=== PATIENT | male | born 1960 | race Caucasian/White ===

== ENCOUNTER 2024-10-09 14:09 | Inpatient (IN) ==
[2024-10-09] MEDS: morphine 2 MG/ML VIAL IV PRN (15:07)
[2024-10-09] MEDS: ceFAZolin 1 GM VIAL IV SCH (15:30)
[2024-10-09] MEDS: morphine 4 MG/ML VIAL IV ONE (17:21)
[2024-10-09] MEDS ORDERED: PROPOFOL 200 MG/20 ML VIAL IV ONE (17:24)
[2024-10-09] MEDS ORDERED: fentaNYL 100 MCG/2 ML VIAL ONE ×2 (17:24→19:15)
[2024-10-09] MEDS ORDERED: KETAMINE 50 MG/ML Syringe IV ONE (17:24)
[2024-10-09] MEDS ORDERED: SUCCINYLCHOLINE 200 MG/10 ML VIAL IV ONE (17:25)
[2024-10-09] MEDS ORDERED: LIDOCAINE 2% PF 5 ML VIAL ONE (17:25)
[2024-10-09] MEDS ORDERED: ONDANSETRON 4 MG/2 ML VIAL ONE (17:25)
[2024-10-09] MEDS ORDERED: DEXAMETHASONE 10 MG/ML VIAL ONE (17:25)
[2024-10-09] MEDS ORDERED: TRANEXAMIC ACID 1,000 MG/10 ML VIAL ONE (18:52)
[2024-10-09] MEDS ORDERED: SUGAMMADEX SODIUM 200 MG/2 ML VIAL IV ONE (18:58)
[2024-10-09] MEDS ORDERED: ONDANSETRON 4 MG/2 ML VIAL IV PRN ×2 (19:00→20:39)
[2024-10-09] MEDS ORDERED: diphenhydrAMINE 50 MG/ML VIAL IV PRN (19:00)
[2024-10-09] MEDS ORDERED: HYDROmorphone 0.5 MG/0.5 ML SYRINGE IV PRN (19:00)
[2024-10-09] MEDS ORDERED: LACTATED RINGERS 250 ML IV PRN (19:00)
[2024-10-09] MEDS ORDERED: IPRATROPIUM/ALBUTEROL 3 ML AMPUL.NEB NEB PRN ×2 (19:00→20:39)
[2024-10-09] MEDS ORDERED: MEPERIDINE 25 MG/ML VIAL IV PRN (19:00)
[2024-10-09] MEDS ORDERED: NALOXONE HCL 0.4 MG/ML VIAL IV PRN (19:00)
[2024-10-09] MEDS: fentaNYL 100 MCG/2 ML VIAL IV PRN (19:54)
[2024-10-09] MEDS: METHOCARBAMOL 1,000 MG/10 ML VIAL IV PRN (19:56)
[2024-10-09] MEDS: ACETAMINOPHEN 1,000 MG/100 ML BAG IV ONE (20:08)
[2024-10-09] MEDS ORDERED: POTASSIUM CHLORIDE 40 MEQ in DEXTROSE 5% IN WATER 500 ML IV PRN (20:39)
[2024-10-09] MEDS ORDERED: morphine 4 MG/ML VIAL IV PRN (20:39)
[2024-10-09] MEDS ORDERED: METOCLOPRAMIDE 10 MG/2 ML VIAL IV PRN (20:39)
[2024-10-09] MEDS ORDERED: MAGNESIUM SULFATE 2 GM/50 ML BAG IV PRN (20:39)
[2024-10-09] MEDS ORDERED: POTASSIUM CHLORIDE 20 MEQ TABLET PO PRN ×2 (20:39)
[2024-10-09] MEDS ORDERED: HYDROcodone/APAP 5/325MG TABLET PO PRN (20:39)
[2024-10-09] MEDS ORDERED: SENNOSIDES 1 TABLET PO PRN (20:39)
[2024-10-09] MEDS ORDERED: POLYETHYLENE GLYCOL 3350 17 GM PACKET PO PRN (20:39)
[2024-10-09] MEDS: fentaNYL 100 MCG/2 ML VIAL ONE (20:42)
[2024-10-09] MEDS: LACTATED RINGERS 1,000 ML IV SCH (20:43)
[2024-10-09] MEDS: 0.9 % SODIUM CHLORIDE 1,000 ML IV SCH (22:15)
[2024-10-09] MEDS: VANCOMYCIN 1,500 MG in 0.9 % SODIUM CHLORIDE 500 ML IV SCH (22:15)
[2024-10-09] MEDS: 0.9 % SODIUM CHLORIDE 10 ML SYRINGE IV SCH (22:17)
[2024-10-09] MEDS: VANCOMYCIN PER PHARMACY IV ONE (22:20)
[2024-10-09] MEDS: DOCUSATE SODIUM 100 MG CAPSULE PO SCH (22:21)
[2024-10-09] MEDS: cefTRIAXone 1 GM VIAL ONE (23:41)
[2024-10-09] MEDS: cefTRIAXone 2 GM in DEXTROSE 5% IN WATER 50 ML IV SCH (23:55)
[2024-10-10 06:16] LABS: Basophils # (Auto) 0.03 K/mcL (0.00-0.30); Basophils % (Auto) 0.3 % (0.0-2.0); Eosinophils # (Auto) 0 K/mcL (0.00-0.70); Eosinophils % (Auto) 0 % (0.0-7.0); Hematocrit 28.8 % (40.1-51.0); Hemoglobin 8.9 g/dL (13.7-17.5); Lymphocytes # (Auto) 0.87 K/mcL (1.50-4.80); Mean Cell Volume 94.7 fL (80.0-100.0); Mean Corpuscular HGB Conc 30.9 g/dL (31.0-36.0); Mean Platelet Volume 9.1 fL (8.8-12.5); Monocytes # (Auto) 0.71 K/mcL (0.10-0.90); Monocytes % (Auto) 6.5 % (1.0-12.0); Neutrophils % (Auto) 84.7 % (38.0-78.0); Platelet Count 588 K/mcL (140-440); RBC 3.04 M/mcL (4.63-6.08); Red Cell Distribution Width 15.3 % (11.5-14.5); WBC 10.9 K/mcL (4.5-11.0)
[2024-10-10 06:33] LABS: ALT/SGPT 63 U/L (<40); AST/SGOT 23 U/L (<40); Albumin 3.2 gm/dL (3.2-5.2); Albumin/Globulin Ratio 0.8 (1.0-2.3); Alkaline Phosphatase 350 U/L (39-117); Bilirubin,Direct 0.2 mg/dL (<0.3); Bilirubin,Total 0.4 mg/dL (0.1-1.0); Blood Urea Nitrogen 11 mg/dL (8-23); Calcium 8.8 mg/dL (8.6-10.4); Carbon Dioxide 22 mmol/L (22-30); Chloride 105 mmol/L (96-108); Globulin 3.9 gm/dL (2.2-3.7); Glomerular Filtration Rate 99; Glucose 167 mg/dL (70-105); Lactate Dehydrogenase 240 U/L (135-225); Phosphorous 4.3 mg/dL (2.5-4.5); Potassium 4.5 mmol/L (3.3-5.1); Sodium 138 mmol/L (133-145); Triglycerides 67 mg/dL (<150); Uric Acid 2.4 mg/dL (2.5-8.0)
[2024-10-10] MEDS ORDERED: VANCOMYCIN PER PHARMACY IV SCH (06:45)
[2024-10-10] MEDS: CEFEPIME 2 GM VIAL IV SCH (10:18)
[2024-10-10] MEDS: valACYclovir 500 MG TABLET PO SCH (10:28)
[2024-10-10] MEDS: CITALOPRAM 20 MG TABLET PO SCH (15:35)
[2024-10-10] MEDS: ATORVASTATIN 40 MG TABLET PO SCH (21:11)
[2024-10-10] MEDS: ACETAMINOPHEN 325 MG TABLET PO PRN (23:20)
[2024-10-11] MEDS: VANCOMYCIN 2,000 MG in 0.9 % SODIUM CHLORIDE 500 ML IV SCH (11:09)
[2024-10-11] MEDS: HEPARIN 5,000 UNIT/ML VIAL SQ SCH (21:09)
[2024-10-12 08:30] LABS: Basophils # (Auto) 0.04 K/mcL (0.00-0.30); Basophils % (Auto) 0.4 % (0.0-2.0); Eosinophils % (Auto) 0.9 % (0.0-7.0); Hematocrit 28.3 % (40.1-51.0); Hemoglobin 8.9 g/dL (13.7-17.5); Lymphocytes % (Auto) 10.8 % (15.5-49.0); Mean Cell Volume 92.5 fL (80.0-100.0); Mean Corpuscular HGB Conc 31.4 g/dL (31.0-36.0); Mean Platelet Volume 8.6 fL (8.8-12.5); Monocytes # (Auto) 1.15 K/mcL (0.10-0.90); Monocytes % (Auto) 10.4 % (1.0-12.0); Neutrophils % (Auto) 76.7 % (38.0-78.0); Platelet Count 598 K/mcL (140-440); RBC 3.06 M/mcL (4.63-6.08); Red Cell Distribution Width 14.9 % (11.5-14.5); WBC 11.1 K/mcL (4.5-11.0)
[2024-10-12 09:50] LABS: ALT/SGPT 66 U/L (<40); AST/SGOT 44 U/L (<40); Albumin 3.2 gm/dL (3.2-5.2); Alkaline Phosphatase 210 U/L (39-117); Bilirubin,Total 0.6 mg/dL (0.1-1.0); Blood Urea Nitrogen 12 mg/dL (8-23); Calcium 8.8 mg/dL (8.6-10.4); Carbon Dioxide 24 mmol/L (22-30); Chloride 101 mmol/L (96-108); Globulin 3.3 gm/dL (2.2-3.7); Glomerular Filtration Rate 106; Glucose 114 mg/dL (70-105); Potassium 3.8 mmol/L (3.3-5.1); Sodium 135 mmol/L (133-145)
[2024-10-12] MEDS: ceFAZolin 1 GM VIAL IV SCH (15:38)
== END 2024-10-12 18:05 | disposition home or self-care (01) | DRG 863 ==
LOC: ED 14:09 → SSSU 17:35 → MEDSUR 20:34
PROVIDERS: ADMIT Internal Medicine; ATTEND Internal Medicine